=== PATIENT | female | born 1995 | race Caucasian/White ===

== ENCOUNTER 2021-07-25 12:55 | Outpatient (REF) | payer MEDICAID, SELFPAY ==
--- NOTE | 2021-07-25 16:10 | MHC.AU.AEV ---
Adult Audiological Evaluation Date of Visit: 07/25/21 Reason for Appointment: Renan was seen for an audiological evaluation as required by her care program. She was accompanied by a care staff member as she currently lives in a halfway. Renan is diagnosed with cerebral palsy, has a severe intellectual disability, and is non-verbal. Renan's care staff member reports no concerns with [place] hearing ability and that she really enjoys listening to music. Does patient feel they have a hearing loss?: No Has hearing been tested previously?: Unknown Ear History: Recent Ear Drainage: None Reported Recent Ear Infections: Both Ears Ear Infections in Childhood: Both Ears History of Ear Wax Buildup: None Reported Previous Ear Surgery: None Reported Medical History: Medical History: Cerebral palsy, severe intellectual disabilities, scoliosis, Raynaud's phenomenon, Thrombocytopenia, Chronic leukopenia Allergies: NKA Medication List: Clonidine HCl, risperidone, Tylenol, guaifenesin, metamucil, cranberry fruit extract Otoscopy: Right Ear: Pt would not tolerate otoscopy Left Ear: Pt would not tolerate otoscopy Tympanometry: Tympanometry performed due to: To assess integrity of the middle ear system Right Ear: Normal Middle Ear System (Type A) Left Ear: Normal Middle Ear System (Type A) Otoacoustic Emissions Frequency Range Used: 1.6-8 kHz Right Ear Results: Could not test due to patient intolerance Analysis: Patient did not tolerate otoacoustic emissions testing Left Ear Results: Present 5406-6637 Hz. Pt did not tolerate further testing. Analysis: Present emissions suggest normal cochlear function in those cochlear regions. Patient did not tolerate further otoacoustic emissions testing Hearing Evaluation: Transducer(s) Used: Soundfield Method: Visual Reinforcement Audiometry (VRA) Stimuli Used: FRESH Noise Soundfield (At Least the Better Ear): Description of Hearing: Normal hearing thresholds from 500-4000 Hz in at least the better ear. Speech Awareness Threshold (SAT): Soundfield: 10 dB HL with lateralization to both sides Interpretation of Results: Normal hearing thresholds in at least the better ear to FRESH noises of 500, 1000, 2000, 4000 Hz. Normal middle ear function. Recommendations: No further audiological action is indicated at this time. Audiological re-evaluation if changes are noted. Recommended to return as needed for hearing evaluations in the future. Diagnosis: Primary Diagnosis: H93.293 Abnormal Auditory Perception Services Performed: Visual Reinforcement Audiometry (CPT 98921) Tympanometry (CPT 78231) Signature: Student/Clinical Fellow: Yes: Dominga Grullon B.A., Stephanie Cdl Team Truck Driver I have reviewed/agreed with student/fellow documentation: Yes Provider: Stephanie Dias, [facility]
== END 2021-07-25 12:56 | disposition home or self-care (01) ==
LOC: HO.SH 12:55
PROVIDERS: Visit Provider Registered Nurse
DX: Z01.118 Encounter for examination of ears and hearing with other abnormal findings (principal); H93.293 Other abnormal auditory perceptions, bilateral
CPT/HCPCS: 92567; 92579

== ENCOUNTER 2023-03-22 11:30 | Outpatient (REF) | payer MEDICAID, SELFPAY ==
[2023-03-22 12:23] LABS: Alanine Aminotransferase 16 U/L (0-31); Albumin Level 4.2 g/dL (3.5-5.0); Alkaline Phosphatase 60 U/L (39-117); Aspartate Amino Transferase 26 U/L (5-31); Bilirubin Direct 0.2 mg/dL (0.0-0.5); Bilirubin Total 0.4 mg/dL (0.0-1.0); Total Protein 7.6 g/dL (6.5-8.0)
[2023-03-22 12:38] LABS: Vitamin D 25-OH Total 18.9 ng/mL (>30)
[2023-03-24 19:44] LABS: TS Negative Control Passed; TS Panel A 0; TS Panel B 0; TS Positive Control Passed; TSpotTB Negative (Negative)
[2023-03-26 06:23] LABS: Rubella IgG Antibody <0.90 Index; Rubeola IgG (Measles) >300.00 AU/mL
== END 2023-03-22 11:31 | disposition home or self-care (01) ==
LOC: HO.LAB 11:30
PROVIDERS: PCP Internal Medicine; Visit Provider Internal Medicine
DX: Z00.00 Encounter for general adult medical examination without abnormal findings (principal)
CPT/HCPCS: 36415; 80076; 82306; 84443; 86481; 86735; 86762; 86765

== ENCOUNTER 2024-02-26 11:01 | Outpatient (REF) | payer MEDICAID, SELFPAY ==
[2024-02-26 13:11] LABS: MANUAL DIFF FLAG NO
[2024-02-26 13:21] LABS: Basophils Percent Auto 0.3 % (0-2); Eosinophils Absolute Auto 0.3 X10*3/uL (0.0-0.4); Hematocrit 40.4 % (37.0-47.0); Hemoglobin 12.8 g/dl (12.0-16.0); Imm Gran Abs Auto 0.01 X10*3/uL (0.00-0.03); Imm Gran Pct Auto 0.2 % (0.0-0.4); Lymphocytes Absolute Auto 1.5 X10*3/uL (1.2-4.9); Mean Corpuscular HGB Conc 31.7 g/dl (31.0-35.0); Mean Corpuscular Hemoglobin 25.3 pg (27.0-33.0); Monocytes Absolute Auto 0.6 X10*3/uL (0.1-1.2); Monocytes Percent Auto 8.7 % (2-11); Neutrophils Percent Auto 63.8 % (45-73); Platelet Count 167 X10*3/uL (160-400); Red Blood Count 5.05 X10*6/uL (4.20-5.50); Red Cell Distribution Width 13.9 % (11.0-16.0); White Blood Count 6.3 X10*3/uL (4.8-10.8)
[2024-02-26 13:27] LABS: Estimated Average Glucose 114 mg/dL; Hemoglobin A1C 130.2965 umol/L; Hemoglobin A1c % 5.6 % (<6.0); Total Hemoglobin (HGBA1C) 3451.7947 umol/L
[2024-02-26 13:49] LABS: Alanine Aminotransferase 50 U/L (0-31); Albumin Level 4.2 g/dL (3.5-5.0); Alkaline Phosphatase 90 U/L (39-117); Anion Gap 13 (12-20); Aspartate Amino Transferase 43 U/L (5-31); Bilirubin Total 0.4 mg/dL (0.0-1.0); Blood Urea Nitrogen 15 mg/dL (9-16); Calcium 9.6 mg/dL (8.4-10.2); Carbon Dioxide 22 mmol/L (22-29); Chloride 106 mmol/L (96-108); Cholesterol 183 mg/dL (<200); Estimated Glomerular Filt Rate > 60; Glucose Random 79 mg/dL (60-115); HDL Cholesterol 49 mg/dL (>40); LDL Cholesterol Calculated 97 mg/dL (<100); Potassium 4.3 mmol/L (3.3-5.1); Sodium 137 mmol/L (135-145); Total Protein 8.2 g/dL (6.5-8.0); Triglycerides 185 mg/dL (<150)
[2024-02-26 13:50] LABS: TSH reflex Free T4 2.83 uIU/mL (0.32-4.0); Vitamin D 25-OH Total 23.3 ng/mL (>30)
[2024-02-27 08:17] LABS: HIV AB/AG Nonreactive (Nonreactive); HIV Num 1 0.09 S/CO (0.00-0.99)
[2024-02-27 21:07] LABS: HCV Log PCR <1.18 NOT DETECTED Log IU/mL (NOT DETECTED); HepC Viral Load <15 NOT DETECTED IU/mL (NOT DETECTED)
[2024-02-28 07:44] LABS: RPR Rapid Plasma Reagin NON-REACTIVE (NON-REACTIVE)
== END 2024-02-26 11:02 | disposition home or self-care (01) ==
LOC: HO.HHCL 11:01
PROVIDERS: Visit Provider Registered Nurse
DX: Z00.00 Encounter for general adult medical examination without abnormal findings (principal)
CPT/HCPCS: 36415; 80053; 80061; 82306; 83036; 84443; 85025; 86592; 87389; 87522

== ENCOUNTER 2024-08-31 15:43 | Outpatient (REF) | payer MEDICAID, SELFPAY ==
[2024-08-31 16:52] LABS: Alanine Aminotransferase 18 U/L (0-31); Albumin Level 4.2 g/dL (3.5-5.0); Alkaline Phosphatase 103 U/L (39-117); Aspartate Amino Transferase 45 U/L (5-31); Bilirubin Direct 0.1 mg/dL (0.0-0.5); Bilirubin Total 0.3 mg/dL (0.0-1.0); Total Protein 8.1 g/dL (6.5-8.0)
--- OUTSIDE RECORDS SUMMARY | 2024-08-31 17:13 | XMS_ITS | Encounter Summary ---
Author Organization [employer] Address [address] [place] [address] [address] [place] [address] Care Team Providers Care Head Start Coordinator Name Role Phone Janeth Muñoz JOANNA Primary Care Provider Encounter Details Date Type Department Care Team (Late st Contact Info) Description 06/07/2022 Abstract [facility] PEDIATRIC DENTAL [address] [place] [address] Stephanie Leon, DMD [address] [place] [address] Social History Tobacco Use Types Packs/Day Years Used Date Smoking Tobacco: Never Assessed Comments Unknown Sex and Gender Information Value Date Recorded Sex Assigned at Female 02/26/2022 10:16 AM EDT Legal Sex Female 10:16 AM EDT Gender Identity Female 02/26/2022 10:16 AM EDT Sexual Orientation Choose not to disclose 2021 10:16 AM EDT COVID-19 Exposure Response Date Recorded In the last 10 days, have yo u been in contact with someone who was confirmed or suspected to have Coronavirus/COVID-19? No / Unsure 06/07/2022 1:10 PM EST documented as of this encounter Plan of Treatment Upcoming Encounters Date Type Department Care Team (Late st Contact Info) Description 09/28/2024 2:30 PM EDT Clinical Support [facility] DIABETES/NUTRITION [address] [place] [address] [place] [address] 10/23/2024 10:15 AM EDT Office Visit [facility] CHC MED & PEDS [address] [place] [address] Janeth Muñoz FNP [address] [place] [address] documented as of this encounter Procedures Procedure Name Priority Date/Time Associated Diagnosis Comments 18 O SEALANT - PER TOOTH Routine 06/07/2022 12:00 AM EST 19 O SEALANT - PER TOOTH Routine 06/07/2022 12:00 AM EST 15 O SEALANT - PER TOOTH Routine 06/07/2022 12:00 AM EST 14 O SEALANT - PER TOOTH Routine 06/07/2022 12:00 AM EST 30 O SEALANT - PER TOOTH Routine 06/07/2022 12:00 AM EST 31 O SEALANT - PER TOOTH Routine 06/07/2022 12:00 AM EST 3 O SEALANT - PER TOOTH Routine 06/07/2022 12:00 AM EST 2 O SEALANT - PER TOOTH Routine 06/07/2022 12:00 AM EST 9 MIFL COMPOSITE FILLING Routine 06/07/2022 12:00 AM EST documented in this encounter Visit Diagnoses Not on filedocumented in this encounter Care Teams Head Start Coordinator Relationship Specialty Start Date End Date Janeth Muñoz FNP [address] [place] [address] PCP - General Family Medicine 04/17/21 documented as of this encounter
--- OUTSIDE RECORDS SUMMARY | 2024-08-31 17:13 | XMS_ITS | Clinical Summary ---
Author Organization [employer] Address [address] [place] [address] 7[address] [place] [address] Care Team Providers Care It Compliance Analyst Name Role Phone Janeth Muñoz JOANNA Primary Care Provider [phone] Allergies Active Allergy Reactions Criticality Noted Date Comments Lactose Intolerance (Gi) 02/22/2023 Tilactase 02/12/2018 Medications risperiDONE (RisperDAL) 0.5 MG tablet Take 1mg PO daily in the morning, and 0.5mg PO in the evening 05/30/19 23 Active cloNIDine (Catapres) 0.1 MG tablet Take 0.1 mg by mouth if needed in the morning and at bedtime (aggitation (not to be given within 3 hrs of scheduled dose)). 11/21/19 24 Active Cranberry Extract 250 MG tabletIndications :Healthcare maintenance Take 1 capsule by mouth Once per day. 90 tablet 3 02/26/20 24 Active acetaminophen (Tylenol) 325 MG tabletIndications :Routine health maintenance take 2 tablet by oral route every 6 hour PRN temp >101F and pain Strength: 325 mg 100 tablet 3 02/26/20 24 Active cloNIDine (Catapres) 0.1 MG tablet Take 0.1 mg by mouth 2 times daily. Psych: Dr. Lu Active docusate sodium (Colace) 100 MG capsuleIndication s:Constipation, unspecified constipation type Take 1 capsule by oral route daily for constipation 90 capsule 3 02/26/20 24 Active dextromethorphan- guaiFENesin (Robitussin-DM) 10-100 MG/5ML liquid Take 10 mL by mouth every 4 (four) hours if needed for cough. 120 mL 3 02/26/20 24 Active cholecalciferol (Vitamin D-3) 25 MCG (1000 UT) tabletIndications :Vitamin D insufficiency Take 1 tablet (25 mcg) by mouth Once per day. 90 tablet 3 03/29/20 24 Active Active Problems Problem Noted Date Diagnosed Date Overweight with body mass in dex (BMI) of 29 to 29.9 in adult 07/26/2024 Assessment & Plan (07/26/2024 3:20 PM EDT): Weight relatively stable over the past 5 months, although has increased approximately 50 pounds in the past 3 years. TSH WNL January 2024. Suspect related to portion sizes and food intake at long-term. Also with limited mobility over the winter. Referral to nutrition placed. Encouraged general nutritious behaviors and physical activity as able. Transaminitis 07/26/2024 Overview (07/26/2024): Lab Results Component Value Date AST 43 (H) 02/26/2024 ALT 50 (H) 02/26/2024 TOTPROTEIN 8.2 (H) 02/26/2024 ALB 4.2 02/26/2024 ALP 90 02/26/2024 TOTALBILIRUB 0.4 02/26/2024 Assessment & Plan (07/26/2024 3:21 PM EDT): Reviewed importance of lifestyle interventions. Plan to repeat liver function testing fasting. Healthcare maintenance 02/26/2024 Overview (07/26/2024): Pap: September 2021 - attempted self swab. Lab unable to process. MASSAGE COORDINATOR referral placed 02/26/24. Consult March 2024 at [facility]. Plan to arrange for Pap smear under sedation. Last PE: 02/26/24 Vaccines: eligible for MMR booster (titers Feb 2023) Assessment & Plan (02/27/2024 9:36 AM EDT): -car rental agency manager reports completed flu and covid iz at outside pharmacy, will plan to bring in documentation to add to our record Agitation 02/26/2024 Overview (02/27/2024): Followed by Psychiatrist - Dr. Lu Med regimen: Risperidone 1mg in the AM and 0.5mg at bedtime Clonidine 0.1mg BID scheduled Clonidine 0.1mg BID PRN (not to be given within 3 hours of scheduled dose) Vitamin D insufficiency 12/09/2023 Overview (07/26/2024): Lab Results Component Value Date [id number] 23.3 (L) 02/26/2024 [id number] 18.9 (L) 03/22/2023 - Cont Vit D 1000 units daily Assessment & Plan (02/26/2024 8:09 AM EDT): - Completed 3 month course of Vit D - Plan to re-check Vit D level Assessment & Plan (12/09/2023 10:21 AM EDT): - Completed 3 month course of Vit D - Plan to re-check Vit D level Encounter for preventive health examination 01/28 Assessment & Plan (02/27/2024 9:45 AM EDT): -Cardiopulmonary exam WNL -Encouraged healthy lifestyle habits including routine physical exercise and diet rich in fruits and vegetables Assessment & Plan (02/22/2023 2:27 PM EDT): Discussed with patient's caregivers re increase fresh fruit and vegetable intake. Counseled re moderate exercise as tolerated Patient seems to be safe at home. PAP smear up to date(swab only), Pt not sexually active. Next one due to be evaluated by PCP on 2024. Lipids up to date/ IZ titers ordered, Vaccinations Flu IZ today, care givers counseled about Covid IZ. Request immune titers. Meningococcal and TD IZ up to date Dental visit up to date, next one due on May 2023 Continue home care 19/11 Atopic dermatitis 03/19/2018 Leukopenia 03/19/2018 Overview (02/26/2024): - Followed by [facility]e/Onc : Dr. Cruz Assessment & Plan (02/27/2024 9:43 AM EDT): Chronic, re-check CBC Raynaud's phenomenon 03/19/2018 Thrombocytopenia 03/19/2018 Overview (02/26/2024): -Followed by [facility]e/Onc: Dr. Cruz Assessment & Plan (02/27/2024 9:43 AM EDT): Chronic, re-check CBC Cerebral palsy 11/15/2011 Assessment & Plan (02/27/2024 9:43 AM EDT): -Cared for in residential home, 19/11 care. Needs cuing and direct care for most iADLs/ADLs -Legal guardian: Cem Bautista (corporate attorney) Assessment & Plan (02/22/2023 2:28 PM EDT): Pt lives in a long-term and need assistance and cueing for most ADLs. Needs to cont on current housing arrangement and supervision Legal guardian is Cem Bautista (Legal document signed on 08/17/[address] [place] [address] To be filed in chart) Encouraged tooth brushing twice daily and floss Curvature of spine 11/15/2011 Severe intellectual disability 11/15/2011 Resolved Problems Problem Noted Date Diagnosed Date Resolved Date Elevated blood pressure reading 02/22/2023 02/27/2024 Assessment & Plan (02/22/2023 2:21 PM EDT): Probably related to agitation at the beginning of the visit, as she didn't like to get BP measured. Repeated on was 100/62. No hx elevated BP No need for further BP monitoring Encounters Date Type Department Care Team Description 08/31/2024 Travel 07/24/2024 10:15 AM EDT Office Visit [facility] CHC MED & PEDS [address] [place] [address] Phalen, Janeth, FINANCIAL SERVICES EDUCATION CONSULTANT Transaminitis (Primary Dx); Overweight (BMI 25.0-29.9); Overweight with body mass index (BMI) of 29 to 29.9 in adult; Healthcare maintenance; Vitamin D insufficiency; Thickening of skin 07/24/2024 Travel 07/23/2024 Telephone [facility] MED & PEDS [address] [place] [address] Janeth Muñoz FNP Chart Prep 07/10/2024 Population Health Risk Score [facility] () Department [address] [place] [phone] Provider, Population Health Generic 06/18/2024 Telephone [facility] MED & PEDS [address] [place] [address] Ramona Figueredo [place] May recall from Last 3 Months Immunizations Name Administration Dates Next Due DTaP 12/06/2000, 9,1996,09/17,1996 HPV, Quadrivalent 04/15/2011,02/09/2010,01/28/20 09 Hep B, Adolescent or Pediatric 1996,1996,1996 Hib (HbOC) 12/06/2000, 7,1996,07/08 IPV 12/06/2000, 7,1996,07/08 Influenza injectable quadriv alent IIV4 with preservative 02/11/2018,01/24/2017,01/31/2015 Influenza injectable quadriv alent preservative free 02/22/2023,06/23/2021,02/16/2019,04/16 Influenza, IIV3, injectable 01/27/2009 Influenza, Split (incl. chapito fied surface antigen) 03/12/2013 MMR 12/06/2000,06/17/1997 Meningococcal MCV4P ACYW-135 06/23/2021,01/28/20 09,09/19/2007 Pfizer Covid-19 Vaccine 12+ 06/23/2021, 1,05/27/2020 TD (adult), 2 Lf tetanus tox oid, preservative free, adsorbed 06/23/2021 Tdap 01/27/2009 Varicella 01/27/2009,12/06/2000 Social History Tobacco Use Types Packs/Day Years Used Date Smoking Tobacco: Never Smokeless Tobacco: Never Tobacco Cessation:Counseling Given: Not Answered Housing Stability Answer Date Recorded What is your housing situation today? I have damon [place]umfield 02/14/[address] you li ve. Do you have problems with any of the following? None of the above 02/14/2023 Food Insecurity Answer Date Recorded Within the past 12 months, y ou worried that your food would run out before you got money to buy more: Never True 02/14/2023 Within the past 12 months,th e food you bought just didn't last and you didn't have enough money to get more: Never True Transportation Answer Date Recorded In the past 12 months, has l ack of transportation kept you from medical appts, meetings, work or from getting things needed for daily living? No 02/14/2023 Utilities Answer Date Recorded In the past 12 months, has t he electric, gas, oil or water company threatened to shut off services in your home? No 02/14/2023 Internet Access Answer Date Recorded Internet Access Q1 Yes 02/13/2024 Internet Access Q2 Not on file 02/13/2024 Comments Unknown Sex and Gender Information Value Date Recorded Sex Assigned at Female 02/26/2022 10:16 AM EDT Legal Sex Female 10:16 AM EDT Gender Identity Female 02/26/2022 10:16 AM EDT Sexual Orientation Choose not to disclose 2021 10:16 AM EDT Last Filed Vital Signs Vital Sign Reading Time Taken Comments Blood Pressure 124/77 02/26/2024 9:35 AM EDT Pulse 86 07/24/2024 10:09 AM EDT Temperature 36.6 ??C (97.8 ??F) 07/24/2024 1 0:09 AM EDT Respiratory Rate 20 07/24/2024 10:0 9 AM EDT Oxygen Saturation 97% 07/24/2024 10: 09 AM EDT Inhaled Oxygen Concentration - - Weight 71.1 kg (156 lb 12.8 oz) 025 10:09 AM EDT Height 154.9 cm (5' 1 ) 07/24/2024 10:0 9 AM EDT Body Mass Index 29.63 07/24/2024 10:09 AM EDT Plan of Treatment Upcoming Encounters Date Type Department Care Team (Late st Contact Info) Description 09/28/2024 2:30 PM EDT Clinical Support [facility] DIABETES/NUTRITION [address] [place] [address] Gely Perez, RD [address] [place] [address] 10/23/2024 10:15 AM EDT Office Visit [facility] CHC MED & PEDS [address] [place] [address] Janeth Muñoz, FINANCIAL SERVICES EDUCATION CONSULTANT [address] [place] [address] Health Maintenance Due Date Last Done Comments Dental X-Ray: Bitewings 1996 Dental X-Ray: Full Mouth 1996 Depression Screening 1996 Alcohol/Substance Use Screening 2008 Family Planning (PISQ) 2011 Dental Oral Exam 12/06/2022 06/07/2022 Dental Prophylaxis 12/06/2022 06/07/2022 COVID-19 Vaccine ( season) 2023 06/23/2021, 06/17/2020, 05/27/2020 Influenza Vaccine (#1) 2023 , 06/23/2021, 02/16/2019, Additional history exists Pap Smear 10/06/2024 SDOH Screening 02/12/2025 02/13/2024 Tobacco Screening 02/25/2025 02/26/2024 DTaP/Tdap/Td Vaccines (8 - Td or Tdap) 06/23/2031 06/23/2021, 01/27/2009, 12/06/2000, Additional history exists Zoster Vaccines (1 of 2) 2046 RSV Patients and Patients Aged 60 years or older (1 - 1-dose 75+ series) 2071 Hepatitis B Vaccines Completed 1996, 1996, 1996 HIB Vaccines Completed 12/06/2000, 11/1996, 1996, Additional history exists IPV Vaccines Completed 12/06/2000, 11/1996, 1996, Additional history exists HPV Vaccines Completed 04/15/2011, 01/27, 01/27/2009 Meningococcal Vaccine Aged Out 06/23/2021 , 01/27/2009, 09/19/2007 No longer eligible based on patient's age to complete this topic HIV Screening Completed 02/26/2024 Hepatitis C Screening Completed 02/26/2024 Hepatitis A Vaccines Aged Out No long er eligible based on patient's age to complete this topic Pneumococcal Vaccine: Pediatrics (0 to 5 Years) and At-Risk Patients (6 to 49) Years) Aged Out No longer eligible based on patient's age to complete this topic RSV under 20 months Aged Out No longe r eligible based on patient's age to complete this topic Rotavirus Vaccines Aged Out No longer eligible based on patient's age to complete this topic Procedures Procedure Name Priority Date/Time Associated Diagnosis Comments HEPATIC FUNCTION PANEL Routine 08/31/2024 3:44 PM EDT Transaminitis HEPATITIS C VIRAL RNA, QUANTITATIVE, REAL-TIME PCR Routine 02/26/2024 11:00 AM EDT Healthcare maintenance HIV 1/2 ANTIGEN/ANTIBODY, FOURTH GENERATION W/RFL Routine 02/26/2024 11:00 AM EDT Healthcare maintenance Full PROPHYLAXIS - ADULT Routine 06/07/2022 1:00 PM EST PERIODIC ORAL EVALUATION - ESTABLISHED PATIENT Routine 06/07/2022 1:00 PM EST from Last 3 Months or Most Recently Relevant to Health Maintenance Results * (ABNORMAL) Hepatic Function Panel (08/31/2024 3:44 PM EDT) Bilirubin, Total 0.3 0.0 - 1.0 mg/dL [facility] Bilirubin, Direct 0.1 0.0 - 0.5 mg/dL [facility] Aspartate Amino Transferase 45(H) 5 - 31 U/L [facility] Comment:Slight Hemolysis.Int erpret result with caution. Alanine Aminotransferase 18 0 - 31 U/L [facility] Total Protein 8.1(H) 6.5 - 8.0 g/dL [facility] Albumin Level 4.2 3.5 - 5.0 g/dL [facility] Alkaline Phosphatase 103 39 - 117 U/L [facility] Blood Venous blood specimen / Unknown 08/31/2024 3:44 PM EDT 08/31/2024 4:15 PM EDT Janeth Muñoz [facility] LAB BLOOD ORDERABLES Final Res ult Performing Organization Address [facility] de Phone Number [facility] [address] [place] [phone] * Hepatitis C Viral RNA, Quantitative, Real-Time PCR (02/26/2024 11:00 AM EDT) Pathologist [facility] Hepatitis C Viral Load <15 NOT DETECTED NOT DETECTED IU/mL [facility] HCV Log PCR <1.18 NOT DETECTED NOT DETECTED Log IU/mL [facility] Comment:For additional infor moshe, please refer tohttp://education.Rysto/faq/BEC10j9(This link is being provided for informational/educational purposes only.)THIS TEST WAS PERFORMED AT:[facility] [place] [phone] SOLANO MD Blood 02/26/2024 11:0 0 AM EDT 02/26/2024 1:07 PM EDT Janeth Muñoz [facility] LAB BLOOD ORDERABLES Final Res ult Performing Organization Address [facility] de Phone Number [facility] [address] [place] [phone] * HIV-1/2 Antigen and Antibodies, Fourth Generation, with Reflexes (02/26/2024 11:00 AM EDT) Pathologist [facility] HIV AB/AG Nonreactive Nonreactive [facility] Comment:HIV-1 p24 Ag and/or HIV-1/HIV-2 Ab not detected.A test result that is nonreactive does not exclude thepossibility of exposure to or infection with HIV-1 and/orHIV-2. Nonreactive results in this assay for individualswith prior exposure to HIV-1 and/or HIV-2 may be due toantigen and antibody levels that are below the limit ofdetection of this assay.The [employer] Alinity HIV Ag/Ab Combo assay result andsupplemental assay results should be interpreted inconjunction with the patient's clinical presentation,history and other laboratory results. If the results areinconsistent with clinical evidence, additional testing issuggested to confirm the result. Blood Venous blood specimen / Unknown 02/26/2024 11:00 AM EDT 02/26/2024 1:07 PM EDT Janeth Muñoz [facility] LAB BLOOD ORDERABLES Final Res ult [facility] [address] [place] [address] [phone] from Last 3 Months or Most Recently Relevant to Health Maintenance Insurance [facility] C3 DENTAL - [facility] MEDICAID DDS [facility]ULT [facility] Care Teams It Compliance Analyst Relationship Specialty Start Date End Date aJneth Muñoz FNP [address] [place] [phone] PCP - General Family Medicine 04/17/21
--- OUTSIDE RECORDS SUMMARY | 2024-08-31 17:13 | XMS_ITS | Encounter Summary ---
Author Organization [employer] Address [address] [facility] [address] [place] [address] Care Team Providers Care Jigger Crown Pouncing Machine Operator Name Role Phone Janeth Muñoz Primary Care Provider [phone] Reason for Visit * Reason Onset Date Comments Paperwork/Forms 04/19/2023 Encounter Details Date Type Department Care Team ([facility] st Contact Info) Description 04/19/2023 Telephone [facility] MEDICINE [address] [place] [address] Janeth Muñoz FNP [address] [place], [place] [phone] Paperwork/Forms Social History Tobacco Use Types Packs/Day Years Used Date Smoking Tobacco: Never Assessed Housing Stability Answer Date Recorded What is [...] t he electric, gas, oil or water [employer] threatened to shut off services in your home? No 02/14/2023 Comments Unknown Sex and Gender Information Value Date Recorded Sex Assigned at Female 02/26/2022 10:16 AM EDT Legal Sex Female 10:16 AM EDT Gender Identity Female 02/26/2022 10:16 AM EDT Sexual Orientation Choose not to disclose 2021 10:16 AM EDT documented as of this encounter Miscellaneous Notes * Telephone Encounter - Ifrah Gaytan RN - 04/19/2023 3:31 PM EST Order generated and faxed to [facility] as requested. * Telephone Encounter - Tony Mcqueen - 04/19/2023 1:51 PM EST Tc from [facility] at the [facility] request a prescription order for the medication ergocalciferol (Vitamin D2) 1.25 MG (06910 UT) capsule states needs order form in order to give medication to patient and can it have a ATTENTION TO [facility] due to facility has several groups documented in this encounter Plan of Treatment Upcoming Encounters Date Type Department Care Team (Late st Contact Info) Description 09/28/2024 2:30 PM EDT Clinical Support [facility] DIABETES/NUTRITION [address] [place] [address] [place] [address] 10/23/2024 10:15 AM EDT Office Visit [facility] CHC MED & PEDS [address] [place] [address] Janeth Muñoz FNP [address] [place] [address] documented as of this encounter Visit Diagnoses Not on filedocumented in this encounter Care Teams Jigger Crown Pouncing Machine Operator Relationship Specialty Start Date End Date Janeth Muñoz FNP [address] [place] [address] PCP - General Family Medicine 04/17/21 documented as of this encounter
--- OUTSIDE RECORDS SUMMARY | 2024-08-31 17:13 | XMS_ITS | Encounter Summary ---
Author Organization [employer] Address [address] [facility] 7t [place] [address] Care Team Providers Care Training Project Manager Name Role Phone Janeth Muñoz JOANNA Primary Care Provider Encounter Details Date Type Department Care Team (Latest Contact Info) Description 08/31/2024 Travel Social History Tobacco Use Types Packs/Day Years Used Date Smoking Tobacco: Never Smokeless Tobacco: Never Housing Stability Answer Date Recorded What is [...] AM EDT documented as of this encounter Plan of Treatment Upcoming Encounters Date Type Department Care Team (Late st Contact Info) Description 09/28/2024 2:30 PM EDT Clinical Support [facility] DIABETES/NUTRITION [address] [place] [address] [place] [address] 10/23/2024 10:15 AM EDT Office Visit [facility] MED [facility]EDS [address] [place] [address] Janeth Muñoz FNP 505 [place] [address] documented as of this encounter Visit Diagnoses Not on filedocumented in this encounter Care Teams Training Project Manager Relationship Specialty Start Date End Date Janeth Muñoz FNP [address] [place] [address] PCP - General Family Medicine 04/17/21 documented as of this encounter
--- OUTSIDE RECORDS SUMMARY | 2024-08-31 17:13 | XMS_ITS | Encounter Summary ---
Author Organization [employer] Address [address] [facility] 7t [place] [address] Care Team Providers Care Birth Attendant Name Role Phone Janeth Muñoz Primary Care Provider [phone] Reason for Visit * Reason Onset Date Comments Medication Question 05/24/2023 Encounter Details Date Type Department Care Team ([facility] Contact Info) Description 05/24/2023 Telephone [facility]EDS [address] [place] [address] Janeth Muñoz FNP [address] [place] [address] Medication Question Social History Tobacco Use Types Packs/Day Years [...] Telephone Encounter - Ifrah Gaytan RN - 05/29/2023 9:29 AM EST Returned call to Rubio regarding message below and informed of med sent to pharmacy. Rubio verbalizedunderstanding and agrees with plan. * Telephone Encounter - JOANNA Koenig - 05/28/2023 4:36 PM EST Yes that is Okay. I sent a PRN script to the pharmacy on file. Thank you. * Telephone Encounter - Angelita Malhotra RN - 05/28/2023 11:05 AM EST Late entry- spoke to Rubio at [facility]. He stated pt had a Rx for Robitussin DM, once further investigation occured he reports the Rx was from 05/2022 and an urgent care provider not PCP. However,he states that this was used for when the pt developed a cough for whatever reason this was on hand to be able to be given to the pt. He is wondering if this is something that the [facility] can have again for this pt. Rubio was advised that this message would need to be sent to provider for review and approval if appropriate. Rubio agrees to plan. * Telephone Encounter - Caro Campbell - 05/24/2023 11:55 AM EST Tc from Rubio regional safety manager from [facility] requesting a call back regarding medication guaifenesin/dextromethorphan. Would like to know if pt is still on med or if its discontinued . Career Services Director did not see medon list . documented in this encounter Plan of Treatment Upcoming Encounters Date Type Department Care Team (Late st Contact Info) Description 09/28/2024 2:30 PM EDT Clinical Support [facility] DIABETES/NUTRITION [address] [place] [address] [place] [address] 10/23/2024 10:15 AM EDT Office Visit [facility] MED & PEDS [address] [place], [place] [phone] Janeth Muñoz FNP [address] [place] [address] documented as of this encounter Visit Diagnoses Not on filedocumented in this encounter Care Teams Birth Attendant Relationship Specialty Start Date End Date Janeth Muñoz FNP [address] [place] [address] PCP - General Family Medicine 04/17/21 documented as of this encounter
== END 2024-08-31 15:44 | disposition home or self-care (01) ==
LOC: HO.HHCL 15:43
PROVIDERS: Visit Provider Registered Nurse
DX: R74.01 Elevation of levels of liver transaminase levels (principal)
CPT/HCPCS: 36415; 80076

== ENCOUNTER 2025-03-19 10:42 | Outpatient (REF) | payer MEDICARE, MEDICAID, SELFPAY ==
--- OUTSIDE RECORDS SUMMARY | 2025-03-19 09:30 | XMS_ITS | Encounter Summary ---
Author Organization [employer] Address [address] [place] [address] 7t [place] [address] Care Team Providers Care Wide Area Network Engineer Name Role Phone Janeth Muñoz Primary Care Provider [phone] Reason for Visit * Reason Comments Annual Exam Here with Greg from program. Encounter Details Date Type Department Care Team ([facility] Contact Info) Description 03/19/2025 9:30 AM EST Office Visit [facility] MED & PEDS [address] [place] [address] Janeth Muñoz FNP [address] [place], [place] [phone] Encounter for preventive health examination (Primary Dx); Encounter for immunization; Vitamin D deficiency, unspecified Social History Tobacco Use Types Packs/Day Years [...] Access Q2 Not on file 02/13/2024 Comments No Sex and Gender Information Value Date Recorded Sex Assigned at Female 02/26/2022 10:16 AM EDT Legal Sex Female 10:16 AM EDT Gender Identity Female 02/26/2022 10:16 AM EDT Sexual Orientation Choose not to disclose 2021 10:16 AM EDT documented as of this encounter Last Filed Vital Signs Vital Sign Reading Time Taken Comments Blood Pressure 127/75 03/19/2025 9:43 AM EST Pulse 75 03/19/2025 9:43 AM EST Temperature 36.6 C (97.9 F) 03/19/2025 9:43 AM EST Respiratory Rate 22 03/19/2025 9:43 AM EST Oxygen Saturation - - Inhaled Oxygen Concentration - - Weight 69.9 kg (154 lb) 03/19/2025 9:43 AM EST Height 153.7 cm (5' 0.5 ) 03/19/2025 9:43 AM EST Body Mass Index 29.58 03/19/2025 9:43 AM EST documented in this encounter Patient Instructions * Patient Instructions* JOANNA Koenig - 03/19/2025 9:30 AM EST Last consult March 2024 at [facility] with plan for pap smear under sedation documented in this encounter Plan of Treatment Upcoming Encounters Date Type Department Care Team (Late st Contact Info) Description 05/27/2025 3:30 PM EST Clinical Support [facility] DIABETES/NTRN [address] [place], [place] [phone] Gely Perez, RD [address] [place] [address] Scheduled Orders Name Type Priority Associated Diagnoses Orde r Schedule Lipid Panel, Standard Lab Routine Encounter for preventive health examination Expected: 03/19/2025 (Approximate), Expires: 03/19/2026 Hemoglobin A1c Lab Routine Encounter for preventive health examination Expected: 03/19/2025 (Approximate), Expires: 03/19/2026 TSH with Reflex to Free T4 Lab Routine Encounter for preventive health examination Expected: 03/19/2025 (Approximate), Expires: 03/19/2026 Comprehensive Metabolic Panel Lab Routine Encounter for preventive health examination Expected: 03/19/2025 (Approximate), Expires: 03/19/2026 CBC auto differential Lab Routine Encounter for preventive health examination Expected: 03/19/2025, Expires: 03/19/2026 Vitamin D, 25-Hydroxy, Total, Immunoassay Lab Routine Encounter for preventive health examination Vitamin D deficiency, unspecified Expected: 03/19/2025 (Approximate), Expires: 03/19/2026 documented as of this encounter Visit Diagnoses Diagnosis Encounter for preventive health examination- Primary Encounter for immunization Vitamin D deficiency, unspecified documented in this encounter Care Teams Wide Area Network Engineer Relationship Specialty Start Date End Date Janeth Muñoz FNP [address] [place] [address] PCP - General Family Medicine 04/17/21 documented as of this encounter
--- OUTSIDE RECORDS SUMMARY | 2025-03-19 11:28 | XMS_ITS | Encounter Summary ---
Author Organization [employer] Address [address] [place] [address] 7[address] [place] [address] Care Team Providers Care Runner Out Name Role Phone Janeth Muñoz Primary Care Provider [phone] Reason for Visit * Reason Onset Date Comments Medication Question 05/24/2023 Encounter Details Date Type Department Care Team ([facility] Contact Info) Description 05/24/2023 Telephone [facility] MED & PEDS [address] [place] [address] Janeth Muñoz FNP [address] [place] [address] Medication Question Social History Tobacco Use Types [...] EST Late entry- spoke to Rubio at [facility]. He stated pt had a Rx [...] wondering if this is something that the [facility] can have again for this pt. Rubio was advised that this message would need to be sent to provider for review and approval if appropriate. Rubio agrees to plan. * Telephone Encounter - Caro Campbell - 05/24/2023 11:55 AM EST Tc from Rubio manager ct from [facility] requesting a call back regarding medication guaifenesin/dextromethorphan. Would like to know if pt is still on med or if its discontinued . Form Setter Supervisor did not see medon list . documented in this encounter Plan of Treatment Upcoming Encounters Date Type Department Care Team (Late st Contact Info) Description 05/27/2025 3:30 PM EST Clinical Support [facility] DIABETES/NTRN [address] [place] [address] [place] [address] documented as of this encounter Visit Diagnoses Not on filedocumented in this encounter Care Teams Runner Out Relationship Specialty Start Date End Date Janeth Muñoz FNP [address] [place] [address] PCP - General Family Medicine 04/17/21 documented as of this encounter
--- OUTSIDE RECORDS SUMMARY | 2025-03-19 11:28 | XMS_ITS | Encounter Summary ---
Author Organization [email or web address] Address [address] [facility] 7t [place] [address] Care Team Providers Care Nailing Machine Operator Name Role Phone Janeth Muñoz Primary Care Provider [phone] Reason for Visit * Reason Onset Date Comments Paperwork/Forms 04/19/2023 Encounter Details Date Type Department Care Team ([facility] st Contact Info) Description 04/19/2023 Telephone [facility] MEDICINE [address] [place] [address] Janeth Muñoz FNP [address] [place], [place] [phone] Paperwork/Forms Social History Tobacco Use Types Packs/Day [...] PM EST Order generated and faxed to [facility] as requested. * Telephone Encounter - Tony Mcqueen - 04/19/2023 1:51 PM EST Tc from [facility] at the [facility] request a prescription order for the medication ergocalciferol (Vitamin D2) 1.25 MG (57210 UT) capsule states needs order form in order to give medication to patient and can it have a ATTENTION TO [facility] due to facility has several groups documented in this encounter Plan of Treatment Upcoming Encounters Date Type Department Care Team (Late st Contact Info) Description 05/27/2025 3:30 PM EST Clinical Support [facility] DIABETES/NTRN [address] [place] [address] [place] [address] documented as of this encounter Visit Diagnoses Not on filedocumented in this encounter Care Teams Nailing Machine Operator Relationship Specialty Start Date End Date Janeth Muñoz FNP [address] [place] [address] PCP - General Family Medicine 04/17/21 documented as of this encounter
--- OUTSIDE RECORDS SUMMARY | 2025-03-19 11:28 | XMS_ITS | Encounter Summary ---
Author Organization [employer] Address [address] [facility] [address]t [place] [address] Care Team Providers Care Cancer Program Coordinator Name Role Phone Janeth Muñoz Primary Care Provider [phone] Reason for Visit * Reason Onset Date Comments Appointment Request 12/17/2024 Encounter Details Date Type Department Care Team ([facility] st Contact Info) Description 12/17/2024 Telephone [facility] MEDICINE [address] [place] [address] Janeth Muñoz FNP [address] [place], [place] [phone] Appointment Request Social History Tobacco Use Types Packs/Day Years [...] encounter Miscellaneous Notes * Telephone Encounter - Mg Hakan - 12/17/2024 2:39 PM EDT Tc from pt Rafa, clinic manager with [facility], requesting a call back to reschedule nutrition appt. Please contact Rafa at [phone]. documented in this encounter Plan of Treatment Upcoming Encounters Date Type Department Care Team (Late st Contact Info) Description 05/27/2025 3:30 PM EST Clinical Support [facility] DIABETES/NTRN [address] [place] [address] [place] [address] documented as of this encounter Visit Diagnoses Not on filedocumented in this encounter Care Teams Cancer Program Coordinator Relationship Specialty Start Date End Date Janeth Muñoz FNP [address] [place] [address] PCP - General Family Medicine 04/17/21 documented as of this encounter
--- OUTSIDE RECORDS SUMMARY | 2025-03-19 11:28 | XMS_ITS | Encounter Summary ---
Author Organization [employer] Address [address] [facility] 7t [place] [address] Care Team Providers Care Employment Attorney Name Role Phone Janeth Muñoz Primary Care Provider [phone] Encounter Details Date Type Department Care Team ([facility] st Contact Info) Description 02/15/2025 Telephone [facility] MEDICINE [address] [place] [address] Janeth Muñoz FNP [address] [place], [place] [phone] Social History Tobacco Use Types Packs/Day Years [...] encounter Miscellaneous Notes * Telephone Encounter - Louisa Felton - 02/15/2025 11:26 AM EDT error documented in this encounter Plan of Treatment Upcoming Encounters Date Type Department Care Team (Late st Contact Info) Description 05/27/2025 3:30 PM EST Clinical Support [facility] DIABETES/NTRN [address] [place] [address] [place] [address] documented as of this encounter Visit Diagnoses Not on filedocumented in this encounter Care Teams Employment Attorney Relationship Specialty Start Date End Date Janeth Muñoz FNP [address] [place] [address] PCP - General Family Medicine 04/17/21 documented as of this encounter
--- OUTSIDE RECORDS SUMMARY | 2025-03-19 11:28 | XMS_ITS | Encounter Summary ---
Author Organization [employer] Address [address] [place] [address] 7t [place] [address] Care Team Providers Care Drop Crew Laborer Name Role Phone Janeth Muñoz JOANNA Primary Care Provider [phone] Encounter Details Date Type Department Care Team (Late st Contact Info) Description 06/07/2022 Abstract [facility] PEDIATRIC DENTAL [address] [place], [place] [phone] Stephanie Leon, AMANDO Social History Tobacco Use Types Packs/Day Years [...] Description 05/27/2025 3:30 PM EST Clinical Support [facility] DIABETES/NTRN [address] [place] [address] Gely Perez, RD [address] [place], [place] [phone] documented as of this encounter Procedures Procedure [...] on filedocumented in this encounter Care Teams Drop Crew Laborer Relationship Specialty Start Date End Date Janeth Muñoz FNP [address] [place] [address] PCP - General Family Medicine 04/17/21 documented as of this encounter
--- OUTSIDE RECORDS SUMMARY | 2025-03-19 11:28 | XMS_ITS | Clinical Summary ---
Author Organization [employer] Address [address] [place] [address] [address] [place] [address] Care Team Providers Care Coal Feeder Operator Name Role Phone Janeth Muñoz JOANNA Primary Care Provider [phone] Allergies Active Allergy Reactions Criticality Noted Date Comments Lactose Intolerance (Gi) 02/22/2023 Tilactase 02/12/2018 Medications risperiDONE (RisperDAL) 0.5 MG tablet Take 1mg PO daily in the morning, and 0.5mg PO in the evening 023 Active cloNIDine (Catapres) 0.1 MG tablet Take 0.1 mg by mouth if needed in the morning and at bedtime (aggitation (not to be given within 3 hrs of scheduled dose)). 024 Active Cranberry Extract 250 MG tabletIndication s:Healthcare maintenance Take 1 capsule by mouth Once per day. 90 tablet 3 024 Active cloNIDine (Catapres) 0.1 MG tablet Take 0.1 mg by mouth 2 times daily. Psych: Dr. Lu Active ibuprofen 400 MG tabletIndication s:Dysmenorrhea Take 1 tablet (400 mg) by mouth every 8 (eight) hours if needed for menstrual pain. 60 tablet 1 025 Active cholecalciferol (Vitamin D-3) 25 MCG (1000 UT) tabletIndication s:Vitamin D insufficiency TAKE 1 TABLET BY MOUTH EVERY DAY 90 tablet 3 025 Active Cranberry 250 MG capsule TAKE 1 CAPSULE BY MOUTH EVERY MORNING AT 8 AM. OPEN CAPSULE AND ADD TO APPLESAUCE. 90 capsule 3 025 Active docusate sodium (Colace) 100 MG capsuleIndicatio ns:Constipation, unspecified constipation type Take 1 capsule by oral route daily for constipation 30 capsule 11 025 Active dextromethorphan -guaiFENesin (Robitussin-DM) 10-100 MG/5ML liquid Take 10 mL by mouth every 4 (four) hours if needed for cough. 120 mL 3 Active acetaminophen (Tylenol) 325 MG tabletIndication s:Routine health maintenance take 2 tablet by oral route every 6 hour PRN temp >101F and pain Strength: 325 mg 100 tablet 3 025 Active acetaminophen (Tylenol) 325 MG tabletIndication s:Routine health maintenance take 2 tablet by oral route every 6 hour PRN temp >101F and pain Strength: 325 mg 100 tablet 3 024 2024 Discontinued(R eorder (will not trigger notification to Pharmacy)) dextromethorphan -guaiFENesin (Robitussin-DM) 10-100 MG/5ML liquid Take 10 mL by mouth every 4 (four) hours if needed for cough. 120 mL 3 024 2024 Discontinued(R eorder (will not trigger notification to Pharmacy)) Active Problems Problem Noted Date Diagnosed Date Overweight with body mass in dex (BMI) of 29 to 29.9 in adult 07/26/2024 Assessment & Plan (07/26/2024 3:20 PM EDT): Weight relatively stable over the past 5 months, although has increased approximately 50 pounds in the past 3 years. TSH WNL January 2024. Suspect related to portion sizes and food intake at [facility]iary. Also with limited mobility over the winter. Referral to nutrition placed. Encouraged general nutritious behaviors and physical activity as able. Transaminitis 07/26/2024 Overview (11/02/2024): Lab Results Component Value Date AST 45 (H) 08/31/2024 ALT 18 08/31/2024 TOTPROTEIN 8.1 (H) 08/31/2024 ALB 4.2 08/31/2024 ALP 103 08/31/2024 TOTALBILIRUB 0.3 08/31/2024 Assessment & Plan (11/02/2024 10:49 AM EDT): - Improvement in ALT value from 50 U/L (02/19) to 18 U/L (09/20) - Stable AST value 43 U/L (02/19) to 45 U/L (09/20) - Reviewed results of lab work with program staff. All questions answered. Encouraged to continue with nutrition interventions and increased physical activity as able Assessment & Plan (07/26/2024 3:21 PM EDT): Reviewed importance of lifestyle interventions. Plan to repeat liver function testing fasting. Healthcare maintenance 02/26/2024 Overview (07/26/2024): Pap: September 2021 - attempted self swab. Lab unable to process. [facility] referral placed 02/26/24. Consult March 2024 at [facility]. Plan to arrange for Pap smear under sedation. Last PE: 02/26/24 Vaccines: eligible for MMR booster (titers Feb 2023) Assessment & Plan (02/27/2024 9:36 AM EDT): -manager audit reports completed flu and covid iz at [...] Overview (07/26/2024): Lab Results Component Value Date [id number] 23.3 (L) 02/26/2024 [id number] 18.9 (L) 03/22/2023 - Cont Vit D [...] Leukopenia 03/19/2018 Overview (02/26/2024): - Followed by [facility] Heme/Onc : Dr. Cruz Assessment & Plan (02/27/2024 9:43 AM EDT): Chronic, re-check CBC Raynaud's phenomenon 03/19/2018 Thrombocytopenia 03/19/2018 Overview (02/26/2024): -Followed by [facility] Heme/Onc: Dr. Cruz Assessment & Plan (02/27/2024 9:43 AM EDT): Chronic, re-check CBC Cerebral palsy 11/15/2011 Assessment & Plan (02/27/2024 9:43 AM EDT): -Cared for in residential home, 19/11 care. Needs cuing and direct care for most iADLs/ADLs -Legal guardian: Cem Michele (business attorney) Assessment & Plan (02/22/2023 2:28 PM EDT): Pt lives in a penitentiary and need assistance and cueing for most ADLs. Needs to cont on current housing arrangement and supervision Legal guardian is Cem Bautista (Legal document signed on 08/17/[address] [place] [address] To be filed in chart) Encouraged [...] Encounters Date Type Department Care Team Description 03/19/2025 9:30 AM EST Office Visit [facility] [address] [place] [address] Janeth Muñoz FNP Encounter for preventive health examination (Primary Dx); Encounter for immunization; Vitamin D deficiency, unspecified 03/19/2025 Travel 03/12/2025 Patient Outreach [facility] [address] [place] [id number] Janeth Muñoz FNP Pre-visit Planning (SDOH screening unable to be completed ) 03/02/2025 Refill [facility] [address] [place] [address] Janeth Muñoz FNP Routine health maintenance 02/15/2025 Refill [facility] [address] [place] [address] Janeth Muñoz FNP Constipation, unspecified constipation type 02/15/2025 Telephone [facility] [address] [place] [address] Janeth Muñoz FNP 01/15/2025 Refill [facility] [address] [place] [address] Janeth Muñoz FNP Healthcare maintenance; Vitamin D insufficiency 01/07/2025 3:30 PM EDT Clinical Support [facility] [address] [place] [address] Over weight (Primary Dx) 01/07/2025 Travel 12/24/2024 Telephone [facility] [address] [place], [place] [phone] Janeth Muñoz FNP Appointment Confirmation 12/17/2024 Telephone [facility] [address] [place], [place] [phone] Janeth Muñoz FNP Appointment Request from Last 3 Months Immunizations Immunization Administration Dates Next Due DTaP 12/06/2000, 9,1996,09/17,1996 HPV, Quadrivalent 04/15/2011,02/09/2010,01/28/20 09 Hep B, Adolescent or Pediatric 1996,1996,1996 Hib ([facility]) 12/06/2000, 7,1996,07/08 IPV 12/06/2000, 7,1996,07/08 Influenza injectable quadriv alent IIV4 with preservative 02/11/2018,01/24/2017,01/31/2015 Influenza injectable quadriv alent preservative free 02/22/2023,06/23/2021,02/16/2019,04/16 Influenza, IIV3, injectable 01/27/2009 Influenza, Split (incl. chapito fied surface antigen) 03/12/2013 Influenza, seasonal, injecta ble, preservative free 03/19/2025 MMR 03/19/2025,12/06/2000,06/17/1997 Meningococcal MCV4P ACYW-135 06/23/2021,01/28/20 09,09/19/2007 Pfizer Covid-19 Vaccine 12+ 03/19/2025,0 06/23/2021,06/17/2020,05/27 TD (adult), 2 Lf tetanus tox oid, [...] 22 03/19/2025 9:43 AM EST Oxygen Saturation 98% 10/23/2024 10:15 AM EDT Inhaled Oxygen Concentration - - Weight 69.9 kg (154 lb) 03/19/2025 9:43 AM EST Height 153.7 cm (5' 0.5 ) 03/19/2025 9:43 AM EST Body Mass Index 29.58 03/19/2025 9:43 AM EST Plan of Treatment Upcoming Encounters Date Type Department Care Team (Late st Contact Info) Description 05/27/2025 3:30 PM EST Clinical Support [facility] [address] [place] [address] Gely Perez, RD [address] [place] [address] Health Maintenance Due Date Last Done Comments Dental X-Ray: Bitewings 1996 Dental X-Ray: Full Mouth 1996 Family Planning (PISQ) 2011 Dental Oral Exam 12/06/2022 06/07/2022 Dental Prophylaxis 12/06/2022 06/07/2022 Pap Smear 10/06/2024 SDOH Screening 02/12/2025 02/13/2024 Alcohol/Substance Use Screening 03/19/2026 03/19/2025 Disability Screening 03/19/2026 03/19/2025 Tobacco Screening 03/19/2026 03/19/2025 DTaP/Tdap/Td Vaccines (8 - Td or Tdap) [...] Completed 02/26/2024 Hepatitis C Screening Completed 02/26/2024 COVID-19 Vaccine Completed 03/19/2025, , 06/17/2020, Additional history exists Influenza Vaccine Completed 03/19/2025, , 06/23/2021, Additional history exists Depression Screening Discontinued Hepatitis A Vaccines Aged Out No long er eligible based on patient's age to complete this topic Meningococcal B Vaccine Aged Out No l onger eligible based on patient's age to complete this topic Pneumococcal Vaccine: Pediatrics (0 to 5 Years) and At-Risk Patients (6 to 49) Years Aged Out No longer eligible based on patient's age to complete this topic RSV under 20 months Aged Out No longe r eligible based on patient's age to complete this topic Rotavirus Vaccines Aged Out No longer eligible based on patient's age to complete this topic Procedures Procedure Name Priority Date/Time Associated Diagnosis Comments HEPATITIS C VIRAL RNA, QUANTITATIVE, REAL-TIME PCR Routine 02/26/2024 11:00 AM EDT Healthcare maintenance HIV 1/2 ANTIGEN/ANTIBODY, FOURTH GENERATION W/RFL Routine 02/26/2024 11:00 AM EDT Healthcare maintenance Full PROPHYLAXIS - ADULT Routine 06/07/2022 1:00 PM EST PERIODIC ORAL EVALUATION - ESTABLISHED PATIENT Routine 06/07/2022 1:00 PM EST from Last 3 Months or Most Recently Relevant to Health Maintenance Results * Hepatitis C Viral RNA, Quantitative, Real-Time PCR (02/26/2024 11:00 AM EDT) Hepatitis C Viral Load <15 NOT DETECTED NOT DETECTED IU/mL [facility] HCV Log PCR <1.18 NOT DETECTED NOT DETECTED Log IU/mL [facility] Comment:For additional infor msohe, please refer tohttp://education.[facility]/faq/EBB79a2(This link is being provided for informational/educational purposes only.)THIS TEST WAS PERFORMED AT:[facility] [place] [id number] SOLANO MD Blood 02/26/2024 11:0 0 AM EDT 02/26/2024 1:07 PM EDT Janeth Muñoz AUDITING CONTROL CLERK LAB BLOOD ORDERABLES Final Res ult Performing Organization Address City/State/[facility] Co de Phone Number [facility] [address] [place] [address] [phone] HIV-1/2 Antigen and Antibodies, Fourth Generation, with Reflexes (02/26/2024 11:00 AM EDT) HIV AB/AG Nonreactive Nonreactive [facility] Comment:HIV-1 p24 Ag and/or HIV-1/HIV-2 Ab not detected.A test result that is nonreactive does not exclude thepossibility of exposure to or infection with HIV-1 and/orHIV-2. Nonreactive results in this assay for individualswith prior exposure to HIV-1 and/or HIV-2 may be due toantigen and antibody levels that are below the limit ofdetection of this assay.The [employer] HIV Ag/Ab Combo assay result andsupplemental assay results should be interpreted inconjunction with the patient's clinical presentation,history and other laboratory results. If the results areinconsistent with clinical evidence, additional testing issuggested to confirm the result. Blood Venous blood specimen / Unknown 02/26/2024 11:00 AM EDT 02/26/2024 1:07 PM EDT Janeth Muñoz [facility] LAB BLOOD ORDERABLES Final Res ult Performing Organization Address [facility] Co de Phone Number [facility] [address] [place] [address] [phone] from Last 3 Months or Most Recently Relevant to Health Maintenance Insurance [facility] STAND[facility] MEDICARE DENTAL - [place] AD[place] DENTAL [place] ADULT Care Teams Coal Feeder Operator Relationship Specialty Start Date End Date Janeth Muñoz FNP [address] [place] [phone] PCP - General Family Medicine 04/17/21
--- OUTSIDE RECORDS SUMMARY | 2025-03-19 11:28 | XMS_ITS | Encounter Summary ---
Author Organization [employer] Address [address] [place] [address] Care Team Providers Care Ambulatory Care Coordinator Name Role Phone Janeth Muñoz JOANNA Primary Care Provider [phone] Encounter Details Date Type Department Care Team (Latest Contact Info) Description 03/19/2025 Travel Social History Tobacco Use Types Packs/Day Years Used Date Smoking Tobacco: Never Smokeless Tobacco: Never Housing Stability Answer Date Recorded What is your housing situation today? I have [facility] 02/14/[address] you [...] 3:30 PM EST Clinical Support [facility] [address] [place] [address] [place] [address] documented as of this encounter Visit Diagnoses Not on filedocumented in this encounter Care Teams Ambulatory Care Coordinator Relationship Specialty Start Date End Date Janeth Muñoz FNP [address] [place] [address] PCP - General Family Medicine 04/17/21 documented as of this encounter
[2025-03-19 14:23] LABS: MANUAL DIFF FLAG NO
[2025-03-19 14:52] LABS: Hematocrit 44.5 % (37.0-47.0); Hemoglobin 13.9 g/dl (12.0-16.0); Imm Gran Abs Auto 0.02 X10*3/uL (0.00-0.03); Imm Gran Pct Auto 0.4 % (0.0-0.4); Lymphocytes Absolute Auto 1.5 X10*3/uL (1.2-4.9); Mean Corpuscular HGB Conc 31.2 g/dl (31.0-35.0); Mean Corpuscular Hemoglobin 25.7 pg (27.0-33.0); Mean Corpuscular Volume 82.3 fL (80.0-98.0); NRBC Abs Auto 0.000 X10*3/uL (0.0-0.012); NRBC Pct Auto 0.0 /100WBC (0.0-0.2); Platelet Count 142 X10*3/uL (160-400); Red Blood Count 5.41 X10*6/uL (4.20-5.50); White Blood Count 5.4 X10*3/uL (4.8-10.8)
[2025-03-19 15:04] LABS: Alanine Aminotransferase 30 U/L (0-31); Albumin Level 4.8 g/dL (3.5-5.0); Alkaline Phosphatase 86 U/L (39-117); Anion Gap 10 (12-20); Aspartate Amino Transferase 34 U/L (5-31); Blood Urea Nitrogen 15 mg/dL (9-16); Calcium 9.5 mg/dL (8.4-10.2); Carbon Dioxide 26 mmol/L (22-29); Chloride 109 mmol/L (96-108); Cholesterol 204 mg/dL (<200); Estimated Glomerular Filt Rate > 60; HDL Cholesterol 52 mg/dL (>40); Potassium 4.1 mmol/L (3.3-5.1); Sodium 141 mmol/L (135-145); Total Protein 8.3 g/dL (6.5-8.0); Triglycerides 142 mg/dL (<150)
== END 2025-03-19 10:43 | disposition home or self-care (01) ==
LOC: HO.CHCLDS 10:42
PROVIDERS: Visit Provider Registered Nurse
DX: Z00.00 Encounter for general adult medical examination without abnormal findings (principal); Z13.1 Encounter for screening for diabetes mellitus; Z13.29 Encounter for screening for other suspected endocrine disorder; Z13.6 Encounter for screening for cardiovascular disorders; E55.9 Vitamin D deficiency, unspecified
CPT/HCPCS: 36415; 80053; 80061; 82306; 83036; 84443; 85025